=== PATIENT | male | born 1955 | race Caucasian/White ===

== ENCOUNTER → 2017-04-26 | Outpatient (CLI) | payer BC ==
[~2017-04-26] MED LIST: PANT1TAB48 PO; SUCR5SUS PO
[2017-04-26 12:42] LABS: ESTIMATED AVERAGE GLUCOSE 137 mg/dl; HA1C FLAG Normal (Normal)
[2017-04-26 13:06] LABS: ALT/SGPT 36 U/L (12-78); BLOOD UREA NITROGEN 18 mg/dl (7-18); BUN/CREATININE RATIO 16.7 (10-20); CARBON DIOXIDE 28 mmol/L (21-32); CHLORIDE 106 mmol/L (98-107); CHOLESTEROL 174 mg/dl (0-200); GLUCOSE 137 mg/dl (70-99); POTASSIUM 4.1 mmol/L (3.5-5.1); SODIUM 141 mmol/L (136-145); TRIGLYCERIDES 128 mg/dl (0-150); VERY LOW DENSITY LIPOPROT CALC 26 mg/dl
[2017-04-26 13:10] LABS: ALB/GLOB RATIO 1.1 (0.9-2); ALKALINE PHOSPHATASE 69 U/L (45-117); AST/SGOT 22 U/L (15-37); CHOLESTEROL/HDL RATIO 2.8; HDL CHOLESTEROL 62 mg/dl; LDL CHOLESTEROL CALCULATED 86 mg/dl
[2017-04-26 13:14] LABS: CALCIUM 9.3 mg/dl (8.5-10.1)
== END | disposition home or self-care (01) ==
LOC: C.LABPBG 07:50
PROVIDERS: ATTEND Internal Medicine
DX: Z11.59 Encounter for screening for other viral diseases (principal); E11.9 Type 2 diabetes mellitus without complications

== ENCOUNTER → 2017-10-26 | Outpatient (CLI) | payer BC ==
[2017-10-26 13:05] LABS: ALT/SGPT 28 U/L (12-78); BLOOD UREA NITROGEN 20 mg/dl (7-18); BUN/CREATININE RATIO 19.7 (10-20); CALCIUM 9.1 mg/dl (8.5-10.1); CARBON DIOXIDE 29 mmol/L (21-32); CHLORIDE 105 mmol/L (98-107); CHOLESTEROL 159 mg/dl (0-200); CREATININE 1.03 mg/dl (0.60-1.40); GLUCOSE 121 mg/dl (70-99); POTASSIUM 4.4 mmol/L (3.5-5.1); SODIUM 138 mmol/L (136-145); TRIGLYCERIDES 79 mg/dl (0-150); VERY LOW DENSITY LIPOPROT CALC 16 mg/dl
[2017-10-26 13:07] LABS: ESTIMATED AVERAGE GLUCOSE 131 mg/dl; HA1C FLAG Normal (Normal)
[2017-10-26 13:09] LABS: ALKALINE PHOSPHATASE 77 U/L (45-117); AST/SGOT 19 U/L (15-37); HDL CHOLESTEROL 81 mg/dl; LDL CHOLESTEROL CALCULATED 62 mg/dl; PROSTATE SPECIFIC ANTIGEN 0.844 ng/ml (0.000-4.000)
== END | disposition home or self-care (01) ==
LOC: C.LABPBG 08:04
PROVIDERS: ATTEND Internal Medicine
DX: Z12.5 Encounter for screening for malignant neoplasm of prostate (principal)

== ENCOUNTER → 2018-07-11 | Outpatient (CLI) | payer BC ==
[~2018-07-11] MED LIST changes: +PANT1TAB3 PO; -PANT1TAB48 PO
[2018-07-11 14:14] LABS: ALKALINE PHOSPHATASE 70 U/L (45-117); ALT/SGPT 26 U/L (12-78); AST/SGOT 14 U/L (15-37); BLOOD UREA NITROGEN 18 mg/dl (7-18); CALCIUM 9.3 mg/dl (8.5-10.1); CARBON DIOXIDE 27 mmol/L (21-32); CHOLESTEROL 174 mg/dl (0-200); CREATININE 1.06 mg/dl (0.60-1.40); GLUCOSE 131 mg/dl (70-99); LDL CHOLESTEROL CALCULATED 90 mg/dl; POTASSIUM 4.1 mmol/L (3.5-5.1); SODIUM 140 mmol/L (136-145); TOTAL PROTEIN 7.8 gm/dl (6.4-8.2)
[2018-07-11 14:20] LABS: HEMOGLOBIN A1C 6.5 % (4.5-5.6)
== END | disposition home or self-care (01) ==
LOC: C.LABPBG 08:04
PROVIDERS: ATTEND Internal Medicine
DX: Z12.5 Encounter for screening for malignant neoplasm of prostate (principal); E11.9 Type 2 diabetes mellitus without complications; E78.5 Hyperlipidemia, unspecified; N20.0 Calculus of kidney